=== PATIENT | male | born 1960 | race African-American/Black ===

== ENCOUNTER 2022-10-29 08:34 | Inpatient (IN) | payer OTHER ==
[~2022-10-29] VITALS: Ht 185.4 cm; Wt 76.7 kg
[2022-10-29] MEDS ORDERED: IOHEXOL-350 100 ML BOTTLE ONE (09:00)
[2022-10-29] MEDS ORDERED: NA PHOS,M-B/NA PHOS,DI-BA ENEMA 118ML PR PRN (11:15)
[2022-10-29] MEDS ORDERED: CLONIDINE 0.1MG TABLET PO PRN (11:15)
[2022-10-29] MEDS ORDERED: MAGNESIUM/ALUMINUM HYDROXIDE/SIMETHICONE 30ML UDC PO PRN (11:15)
[2022-10-29] MEDS ORDERED: GUAIFENESIN 200MG/10ML SUGAR FREE UDC PO PRN (11:15)
[2022-10-29] MEDS ORDERED: IPRATROPIUM/ALBUTEROL 0.5-3(2.5)MG/3ML NEB HHN PRN (11:15)
[2022-10-29] MEDS ORDERED: NITROGLYCERIN 0.4MG TABLET SL SL PRN (11:15)
[2022-10-29] MEDS ORDERED: ONDANSETRON HCL 4MG/2ML INJ IV PRN (11:15)
[2022-10-29] MEDS ORDERED: DOCUSATE SODIUM 100MG CAPSULE PO PRN (11:15)
[2022-10-29] MEDS ORDERED: ACETAMINOPHEN 325MG TABLET PO PRN (11:15)
[2022-10-29] MEDS ORDERED: DEXTROSE 50% WATER 50ML SYRINGE IV PRN (11:15)
[2022-10-29] MEDS ORDERED: KETOROLAC 15MG/ML VIAL IV PRN (11:15)
[2022-10-29 11:18] LABS: HEMATOCRIT. 46.9 % (42.0-52.0); HEMOGLOBIN. 16.1 g/dL (14.0-18.0); MEAN CORPUSCULAR HEMOGLOBIN 30.7 pg (28.0-32.0); MEAN CORPUSCULAR VOLUME 89.4 fL (80.0-94.0); MEAN PLATELET VOLUME 8.5 fl (7.4-10.4); PLATELET 216 x1000/uL (130-400); RED BLOOD CELL COUNT 5.25 mill/uL (4.7-6.1); RED CELL DISTRIBUTION WIDTH 15.3 % (11.6-14.6)
[2022-10-29] MEDS: DEXT 5%/LACTATED RINGERS 1,000 ML IV SCH (11:20)
[2022-10-29 11:48] LABS: CHLORIDE 93 mEq/L (98-107)
[2022-10-29 11:58] LABS: ETHANOL BLOOD < 10 mg/dL
[2022-10-29 12:17] LABS: PLATELET ESTIMATE NORMAL
[2022-10-29] MEDS ORDERED: VANCOMYCIN 1G PREMIX 200 ML IV ONE (12:30)
[2022-10-29] MEDS ORDERED: SODIUM CHLORIDE 0.9% 1000ML BAG (SEPSIS BOLUS) IV ONE (12:30)
[2022-10-29] MEDS ORDERED: PIPERACILLIN/TAZ 3.375G PREMIX 50 ML IV ONE (12:30)
[2022-10-29] MEDS: ENOXAPARIN 40MG/0.4ML SYR SUBCUT SCH (13:20)
[2022-10-29] MEDS: INSULIN LISPRO 100 UNITS/ML SUBCUT SCH ×3 (13:20→22:40)
[2022-10-29] MEDS: BLOOD SUGAR DIAGNOSTIC STRIP TEST SCH ×3 (13:21→22:40)
[2022-10-29 13:49] LABS: T4 FREE 1.04 ng/dL (0.76-1.46)
[2022-10-29] MEDS ORDERED: SODIUM CHLORIDE 0.9% 1,000 ML IV ONE (15:45)
[2022-10-29 16:20] LABS: CREATINE KINASE 807 IU/L (39-308); CREATINE KINASE MB FRACTION 1.1 ng/mL (0.5-3.6)
[2022-10-29] MEDS ORDERED: AZITHROMYCIN 500MG/250ML 250 ML IV NR (17:00)
[2022-10-29 20:00] VITALS: BP 103/68
[2022-10-29] MEDS ORDERED: ZOLPIDEM TARTRATE 5MG TABLET PO PRN (21:00)
[2022-10-29 22:41] VITALS: BP 103/68
[2022-10-30] VITALS: BP 96/55
[2022-10-30] MEDS: DEXT 5%/LACTATED RINGERS 1,000 ML IV SCH ×2 (00:38→13:55)
[2022-10-30 01:42] LABS: CREATINE KINASE MB FRACTION 2.8 ng/mL (0.5-3.6)
[2022-10-30 04:00] VITALS: BP 104/72
[2022-10-30] MEDS: INSULIN LISPRO 100 UNITS/ML SUBCUT SCH ×4 (06:35→21:00)
[2022-10-30] MEDS: BLOOD SUGAR DIAGNOSTIC STRIP TEST SCH ×4 (06:35→21:00)
[2022-10-30 08:00] VITALS: BP_SYST 109; BP_SYST 115; BP_DIAS 54; BP_DIAS 72
[2022-10-30] MEDS ORDERED: CEFTRIAXONE 1 G PREMIX 50 ML IV SCH (09:00)
[2022-10-30] MEDS ORDERED: INFLUENZA VACCINE 05/PF 0.5 ML SYRINGE IM ONE (11:00)
[2022-10-30] MEDS ORDERED: PNEUMOCOCCAL 23-VAL P-SAC VAC 0.5 ML IM ONE (11:00)
[2022-10-30] MEDS: PANTOPRAZOLE SODIUM 40 MG/VIAL IV SCH (11:04)
[2022-10-30] MEDS: ASPIRIN 325MG EC TABLET PO SCH (11:05)
[2022-10-30] MEDS: CEFTRIAXONE 1,000 MG in DEXTROSE 5% WATER 50 ML IV SCH (11:05)
[2022-10-30 12:00] VITALS: BP 114/63
[2022-10-30] MEDS: ENOXAPARIN 40MG/0.4ML SYR SUBCUT SCH (13:15)
[2022-10-30 13:46] LABS: HEMATOCRIT. 33.3 % (42.0-52.0); HEMOGLOBIN. 11.3 g/dL (14.0-18.0); MEAN CORPUSCULAR HEMOGLOBIN 29.7 pg (28.0-32.0); MEAN CORPUSCULAR VOLUME 87.1 fL (80.0-94.0); MEAN PLATELET VOLUME 7.6 fl (7.4-10.4); PLATELET 197 x1000/uL (130-400); RED BLOOD CELL COUNT 3.82 mill/uL (4.7-6.1); RED CELL DISTRIBUTION WIDTH 15.3 % (11.6-14.6)
[2022-10-30 13:53] LABS: CHLORIDE 103 mEq/L (98-107)
[2022-10-30 14:02] LABS: PHOSPHORUS 3.7 mg/dL (2.5-4.9)
[2022-10-30 16:00] VITALS: BP 125/76
[2022-10-30] MEDS: AZITHROMYCIN 500 MG in DEXT 5% WATER 250 ML IV SCH (16:00)
[2022-10-30] MEDS ORDERED: AZITHROMYCIN 500 MG in DEXT 5% WATER 250 ML IV SCH (16:00)
[2022-10-30 20:00] VITALS: BP 130/85
[2022-10-31] VITALS: BP 132/82
[2022-10-31] MEDS: DEXT 5%/LACTATED RINGERS 1,000 ML IV SCH ×2 (02:18→13:43)
[2022-10-31 04:00] VITALS: BP 125/86
[2022-10-31] MEDS: BLOOD SUGAR DIAGNOSTIC STRIP TEST SCH ×4 (06:05→21:33)
[2022-10-31] MEDS: INSULIN LISPRO 100 UNITS/ML SUBCUT SCH ×4 (07:20→21:00)
[2022-10-31 08:00] VITALS: BP 110/72
[2022-10-31] MEDS ORDERED: LIDOCAINE HCL 1% 30ML VIAL (10MG/ML) ONE (08:07)
[2022-10-31] MEDS: ASPIRIN 325MG EC TABLET PO SCH (08:42)
[2022-10-31] MEDS: CEFTRIAXONE 1,000 MG in DEXTROSE 5% WATER 50 ML IV SCH (12:00)
[2022-10-31] MEDS: PANTOPRAZOLE SODIUM 40 MG/VIAL IV SCH (12:00)
[2022-10-31] MEDS: POLYVINYL ALCOHOL OPHTH DROPS 15ML BOTHEYE SCH ×3 (12:00→19:12)
[2022-10-31 12:10] VITALS: BP 116/74
[2022-10-31] MEDS: AZITHROMYCIN 500 MG in DEXT 5% WATER 250 ML IV SCH (13:42)
[2022-10-31] MEDS: ENOXAPARIN 40MG/0.4ML SYR SUBCUT SCH (13:46)
[2022-10-31 16:00] VITALS: BP 138/70
[2022-10-31 20:00] VITALS: BP 113/78
[2022-11-01 00:07] VITALS: BP 105/72
[2022-11-01 04:07] VITALS: BP 120/70
[2022-11-01] MEDS: DEXT 5%/LACTATED RINGERS 1,000 ML IV SCH ×2 (05:59→17:48)
[2022-11-01] MEDS: INSULIN LISPRO 100 UNITS/ML SUBCUT SCH ×4 (06:02→21:50)
[2022-11-01] MEDS: BLOOD SUGAR DIAGNOSTIC STRIP TEST SCH ×4 (06:02→21:00)
[2022-11-01 08:00] VITALS: BP 106/65
[2022-11-01] MEDS: POLYVINYL ALCOHOL OPHTH DROPS 15ML BOTHEYE SCH ×3 (09:28→17:48)
[2022-11-01] MEDS: FAMOTIDINE 20MG/2ML VIAL IV SCH ×2 (09:28→21:45)
[2022-11-01] MEDS: PANTOT AC/MIN OIL/PET HY-PHL OINT (AQUAPHOR) TOP SCH (09:28)
[2022-11-01] MEDS: CEFTRIAXONE 1,000 MG in DEXTROSE 5% WATER 50 ML IV SCH (09:28)
[2022-11-01] MEDS: ASPIRIN 325MG EC TABLET PO SCH (09:28)
[2022-11-01 12:00] VITALS: BP 99/64
[2022-11-01] MEDS: ENOXAPARIN 40MG/0.4ML SYR SUBCUT SCH (13:08)
[2022-11-01] MEDS: AZITHROMYCIN 500 MG in DEXT 5% WATER 250 ML IV SCH (13:08)
[2022-11-01 16:00] VITALS: BP 133/76
[2022-11-01 20:06] VITALS: BP 103/67
[2022-11-02 00:02] VITALS: BP 108/68
[2022-11-02 04:03] VITALS: BP 140/70
[2022-11-02] MEDS: BLOOD SUGAR DIAGNOSTIC STRIP TEST SCH ×4 (06:31→21:46)
[2022-11-02] MEDS: INSULIN LISPRO 100 UNITS/ML SUBCUT SCH ×4 (06:31→21:00)
[2022-11-02 08:03] VITALS: BP 95/57
[2022-11-02] MEDS: FAMOTIDINE 20MG/2ML VIAL IV SCH ×2 (08:20→21:53)
[2022-11-02] MEDS: ASPIRIN 325MG EC TABLET PO SCH (08:20)
[2022-11-02] MEDS: POLYVINYL ALCOHOL OPHTH DROPS 15ML BOTHEYE SCH ×3 (08:21→17:50)
[2022-11-02] MEDS: DEXT 5%/LACTATED RINGERS 1,000 ML IV SCH ×2 (08:21→21:55)
[2022-11-02] MEDS: PANTOT AC/MIN OIL/PET HY-PHL OINT (AQUAPHOR) TOP SCH (08:21)
[2022-11-02] MEDS: CEFTRIAXONE 1,000 MG in DEXTROSE 5% WATER 50 ML IV SCH (08:21)
[2022-11-02 12:00] VITALS: BP 95/59
[2022-11-02] MEDS ORDERED: BUTALBITAL/ACETAMINOPHEN/CAFFEINE 50/325/40MG TABLET PO PRN (12:00)
[2022-11-02] MEDS: ENOXAPARIN 40MG/0.4ML SYR SUBCUT SCH (13:24)
[2022-11-02] MEDS: AZITHROMYCIN 500 MG in DEXT 5% WATER 250 ML IV SCH (13:25)
[2022-11-02 16:00] VITALS: BP 91/63
[2022-11-02 20:00] VITALS: BP 121/69
[2022-11-03] VITALS: BP 122/79
[2022-11-03 04:00] VITALS: BP 121/81
[2022-11-03 07:05] LABS: HEMATOCRIT. 31.1 % (42.0-52.0); HEMOGLOBIN. 10.8 g/dL (14.0-18.0); MEAN CORPUSCULAR HEMOGLOBIN 30.4 pg (28.0-32.0); MEAN CORPUSCULAR VOLUME 87.9 fL (80.0-94.0); MEAN PLATELET VOLUME 7.6 fl (7.4-10.4); PLATELET 263 x1000/uL (130-400); RED BLOOD CELL COUNT 3.54 mill/uL (4.7-6.1); RED CELL DISTRIBUTION WIDTH 15.7 % (11.6-14.6)
[2022-11-03] MEDS: BLOOD SUGAR DIAGNOSTIC STRIP TEST SCH ×4 (07:05→21:00)
[2022-11-03] MEDS: INSULIN LISPRO 100 UNITS/ML SUBCUT SCH ×4 (07:06→21:00)
[2022-11-03 07:16] LABS: CHLORIDE 105 mEq/L (98-107)
[2022-11-03 08:00] VITALS: BP 110/75
[2022-11-03] MEDS: CEFTRIAXONE 1,000 MG in DEXTROSE 5% WATER 50 ML IV SCH (09:21)
[2022-11-03] MEDS: POLYVINYL ALCOHOL OPHTH DROPS 15ML BOTHEYE SCH ×3 (09:22→17:32)
[2022-11-03] MEDS: ASPIRIN 325MG EC TABLET PO SCH (09:22)
[2022-11-03] MEDS: FAMOTIDINE 20MG/2ML VIAL IV SCH (09:22)
[2022-11-03] MEDS: PANTOT AC/MIN OIL/PET HY-PHL OINT (AQUAPHOR) TOP SCH (09:22)
[2022-11-03 11:28] LABS: PLATELET ESTIMATE NORMAL
[2022-11-03 12:00] VITALS: BP 104/52
[2022-11-03] MEDS: DEXT 5%/LACTATED RINGERS 1,000 ML IV SCH (12:55)
[2022-11-03] MEDS: ENOXAPARIN 40MG/0.4ML SYR SUBCUT SCH (12:56)
[2022-11-03 16:00] VITALS: BP 118/69
[2022-11-03 20:00] VITALS: BP 130/79
[2022-11-03] MEDS: FAMOTIDINE 20MG TABLET PO SCH (22:07)
[2022-11-04] VITALS: BP 129/76
[2022-11-04] MEDS: DEXT 5%/LACTATED RINGERS 1,000 ML IV SCH ×2 (01:04→12:10)
[2022-11-04 04:00] VITALS: BP 111/57
[2022-11-04] MEDS: INSULIN LISPRO 100 UNITS/ML SUBCUT SCH ×4 (06:54→21:00)
[2022-11-04] MEDS: BLOOD SUGAR DIAGNOSTIC STRIP TEST SCH ×4 (06:54→21:00)
[2022-11-04 08:00] VITALS: BP 119/75
[2022-11-04] MEDS: PANTOT AC/MIN OIL/PET HY-PHL OINT (AQUAPHOR) TOP SCH (08:47)
[2022-11-04] MEDS: FAMOTIDINE 20MG TABLET PO SCH ×2 (08:47→21:17)
[2022-11-04] MEDS: POLYVINYL ALCOHOL OPHTH DROPS 15ML BOTHEYE SCH ×3 (08:47→16:18)
[2022-11-04] MEDS: ASPIRIN 325MG EC TABLET PO SCH (08:47)
[2022-11-04 12:00] VITALS: BP 135/80
[2022-11-04] MEDS: ENOXAPARIN 40MG/0.4ML SYR SUBCUT SCH (12:10)
[2022-11-04 12:52] LABS: HEMATOCRIT 30.6 % (42.0-52.0); HEMOGLOBIN 10.5 g/dL (14.0-18.0)
[2022-11-04 13:53] LABS: CHLORIDE 104 mEq/L (98-107)
[2022-11-04] MEDS ORDERED: BACITRACIN/POLYMYXIN B SULFATE OPHTH OINT 3.5GM LEFTEYE SCH (14:00)
[2022-11-04 16:00] VITALS: BP 136/75
[2022-11-04] MEDS: ERYTHROMYCIN BASE 0.5% OPHTH OINT 3.5GM LEFTEYE SCH (16:17)
[2022-11-04] MEDS: ACETAMINOPHEN 325MG TABLET PO PRN (16:17)
[2022-11-04 20:00] VITALS: BP 111/52
[2022-11-05] VITALS: BP 129/80
[2022-11-05] MEDS: DEXT 5%/LACTATED RINGERS 1,000 ML IV SCH (03:15)
[2022-11-05 04:00] VITALS: BP 128/75
[2022-11-05] MEDS: BLOOD SUGAR DIAGNOSTIC STRIP TEST SCH ×2 (06:50→11:50)
[2022-11-05] MEDS: INSULIN LISPRO 100 UNITS/ML SUBCUT SCH ×2 (07:20→12:20)
[2022-11-05 07:35] LABS: CHLORIDE 108 mEq/L (98-107)
[2022-11-05 08:00] VITALS: BP 142/87
[2022-11-05] MEDS: ERYTHROMYCIN BASE 0.5% OPHTH OINT 3.5GM LEFTEYE SCH ×2 (09:34→13:35)
[2022-11-05] MEDS: POLYVINYL ALCOHOL OPHTH DROPS 15ML BOTHEYE SCH ×2 (09:34→13:35)
[2022-11-05] MEDS: FAMOTIDINE 20MG TABLET PO SCH (09:35)
[2022-11-05] MEDS: ASPIRIN 325MG EC TABLET PO SCH (09:35)
[2022-11-05] MEDS: ACETAMINOPHEN 325MG TABLET PO PRN (09:35)
[2022-11-05] MEDS: PANTOT AC/MIN OIL/PET HY-PHL OINT (AQUAPHOR) TOP SCH (09:35)
[2022-11-05 11:18] LABS: HEMATOCRIT 28.4 % (42.0-52.0); HEMOGLOBIN 9.9 g/dL (14.0-18.0); MEAN CORPUSCULAR HEMOGLOBIN 30.6 pg (28.0-32.0); MEAN CORPUSCULAR VOLUME 88.1 fL (80.0-94.0); PLATELET 311 x1000/uL (130-400); RED BLOOD CELL COUNT 3.22 mill/uL (4.7-6.1)
[2022-11-05 12:00] VITALS: BP 112/71
[2022-11-05] MEDS: ENOXAPARIN 40MG/0.4ML SYR SUBCUT SCH (13:35)
[2022-11-05 16:22] VITALS: BP 125/75
== END 2022-11-05 16:30 | disposition home health service (06) | DRG 720 ==
LOC: ER 08:34 → EDBEDREQ 09:34 → EDBD 11:00 → 3WST 11:00 → EDBEDREQ 11:01 → EDBEDREQTM 11:01 → 3WST 11-03 11:07
PROVIDERS: ADMIT Internal Medicine; ATTEND Internal Medicine
PROC: 02HV33Z Insertion of Infusion Device into Superior Vena Cava, Percutaneous Approach (ICD-10-PCS; principal; 2022-10-31)
PROC: B548ZZA Ultrasonography of Superior Vena Cava, Guidance (ICD-10-PCS; 2022-10-31)
DX: A41.9 Sepsis, unspecified organism (principal); G92.8 Other toxic encephalopathy; E87.20 Acidosis, unspecified; E44.0 Moderate protein-calorie malnutrition; E11.649 Type 2 diabetes mellitus with hypoglycemia without coma; J18.9 Pneumonia, unspecified organism; E87.1 Hypo-osmolality and hyponatremia; Z20.822 Contact with and (suspected) exposure to COVID-19; E87.5 Hyperkalemia; D64.9 Anemia, unspecified; J01.00 Acute maxillary sinusitis, unspecified; G43.909 Migraine, unspecified, not intractable, without status migrainosus; H10.89 Other conjunctivitis; R47.02 Dysphasia; Z68.22 Body mass index [BMI] 22.0-22.9, adult; Z79.4 Long term (current) use of insulin; Z79.82 Long term (current) use of aspirin
CPT/HCPCS: 36415; 36573; 70496; 70498; 70551; 71045; 80048; 80053; 80061; 80320; 82550; 82553; 82607; 82746; 82962; 83036; 83540; 83550; 83605; 83735; 84100; 84145; 84439; 84443; 84484; 85014; 85018; 85025; 85027; 87426; 90686; 90732; 92610; 93005; 93306; 93970; 97116; 97162; 97166; 97530; 97535; 99291; C1725; C9113; C9803; J0456; J0696; J1650; J1815; J1885; J2543; J3370; J3490; J7030; J7060; Q9967; G0480